=== PATIENT | female | born 1955 | race Caucasian/White ===

== ENCOUNTER → 2019-04-13 | Outpatient (REF) | payer MEDICARE, BC | LOC: M LAB REF 19:21 | PROVIDERS: ATTEND Radiology Diagnostic Radiology | DX: R92.2 Inconclusive mammogram (principal) ==

== ENCOUNTER → 2020-09-23 | Outpatient (CLI) | payer MEDICARE, BC ==
--- NOTE | 2020-09-23 12:24 | REPMRS ---
Patient History The patient states she had a clinical breast exam in August 2020. Patient is postmenopausal. Family history of breast cancer at age 58 in mother, colorectal cancer at age 50 or over in brother, breast cancer at age 35 in niece, colorectal cancer at age 72 in maternal grandmother. Benign stereotactic core biopsy of the left breast, April 13, 2019. Took estrogen for 15 years. Patient states no breast complaints today. Patient has signed MRS History Sheet. 20 lb intentional weight loss. Digital Woman Screen Mammo: September 23, 2020 - Exam #: [id number] Bilateral CC and MLO view(s) were taken. Technologist: RT Christiano Prior study comparison: March 11, 2019, digital mammo diagnostic bilateral, performed at [facility]. February 25, 2019, bilateral digital mammo screening bilat, performed at [place]. February 07, 2018, bilateral digital mammo screening bilat, performed at [place]. FINDINGS: The breast tissue is almost entirely fat. The [facility] volumetric breast density category is: A. There is a needle biopsy marker clip noted in the left breast. There has been no change in the appearance of the mammogram from the prior studies. There is no interval development of dominant mass, architectural distortion, or grouped microcalcification typical of malignancy. 3-D tomosynthesis shows no additional findings. Assessment: BI-RADS/ACR category 2 mammogram. Benign Findings. Recommendation Routine screening mammogram of both breasts in 1 year (for women over age 40). This patient's [facility] Lifetime Breast Cancer RIsk is estimated at 6.0 %. This mammogram was interpreted with the aid of an FDA-approved computer-aided dectection system. Electronically Signed By: Ethan George MD 09/23/20 [id number]
== END ==
LOC: M WHC 10:16
DX: Z12.31 Encounter for screening mammogram for malignant neoplasm of breast (principal); Z80.3 Family history of malignant neoplasm of breast; Z80.0 Family history of malignant neoplasm of digestive organs

== ENCOUNTER → 2022-01-26 | Outpatient (CLI) | payer MEDICARE, BC | LOC: M WHC 12:25 | DX: Z12.31 Encounter for screening mammogram for malignant neoplasm of breast (principal) ==

== ENCOUNTER → 2023-03-01 | Outpatient (CLI) | payer MEDICARE, BC | LOC: M WHC 10:11 | PROVIDERS: ATTEND Nurse Practitioner Family | DX: Z12.31 Encounter for screening mammogram for malignant neoplasm of breast (principal); Z13.820 Encounter for screening for osteoporosis; M81.0 Age-related osteoporosis without current pathological fracture; M85.89 Other specified disorders of bone density and structure, multiple sites ==

== ENCOUNTER → 2024-05-22 | Outpatient (CLI) | payer MEDICARE | LOC: M WHC 10:20 | PROVIDERS: ATTEND Nurse Practitioner Family | DX: Z12.31 Encounter for screening mammogram for malignant neoplasm of breast (principal) ==